=== PATIENT | female | born 1965 | race Caucasian/White ===

== ENCOUNTER 2023-08-28 14:11 | Outpatient (CLI) | payer MEDICAID | END 2023-08-28 14:12 | disposition critical access hospital (66) | LOC: EMS 14:11 | DX: M79.604 Pain in right leg (principal); Z59.00 Homelessness unspecified | CPT/HCPCS: A0425; A0429; A0999 ==

== ENCOUNTER 2023-08-28 14:28 | Emergency (ER) | payer MEDICAID, OTHER ==
[2023-08-28 14:51] VITALS: BP 135/84; O2SAT 94
[2023-08-28] MEDS ORDERED: IBUPROFEN 800 MG TABLET PO STA (15:00)
--- NOTE | 2023-08-28 15:01 | ED Physician Documentation ---
History of Present Illness - Stated complaint Stated Complaint: R LEG PX - Chief complaint Chief Complaint: Ext Problem - History obtained from History obtained from: Patient - History of Present Illness Timing: Today Pain level max: 5 Pain level now: 5 - Additonal information Additional information: Patient is a 58-year-old female who presents to the emergency department complaining of right hip and right knee pain after "walking" last night. No fall. No trip. No trauma. Has not taken anything for pain. She states that she is homeless, but usually stays in [place]. Her regular doctor is in [place]. No swelling. No fevers. No chills. No skin changes. Has not taken anything for pain. She states she does not want anything "stronger". Review of Systems Constitutional: denies: Fever, Chills GI: denies: Vomiting PD PAST MEDICAL HISTORY - Past Medical History Cardiovascular: Hypertension Respiratory: COPD Psych: Depression - Allergies Allergies/Adverse Reactions: Allergies Allergy/AdvReac Type Severity Reaction Status Date / Time No Known Drug Allergies Allergy Verified 08/28/23 14:50 - Social History Does the pt smoke?: Yes Smoking Status: Current every day smoker PD ED PE NORMAL - Vitals Vital signs reviewed: Yes - General General: Alert and oriented X 3, No acute distress - HEENT HEENT: PERRL, Moist mucous membranes - Neck Neck: Supple, no meningeal sign - Cardiac Cardiac: RRR, Strong equal pulses - Respiratory Respiratory: No respiratory distress, Clear bilaterally - Abdomen Abdomen: Soft, Non tender, Non distended - Derm Derm: Warm and dry - Extremities Extremities: No deformity, No tenderness to palpate, Normal ROM s pain, Other (No swelling of the hip or knee. Full range of motion of all joints of the bilateral lower extremities without any pain. No crepitus. No skin changes. Neurovascular intact. No bony tenderness.) - Neuro Neuro: Alert and oriented X 3 - Psych Psych: Normal mood, Normal affect Results - Vitals Vitals: Vital Signs - 24 hr 08/28/23 14:46 Temperature 36.2 C L Heart Rate 71 Respiratory 18 Rate Blood Pressure 135/84 H O2 Saturation 94 Oxygen O2 Source Room air PD Medical Decision Making - ED course Complexity details: considered differential, d/w patient ED course: Patient likely with arthritis of the hip and knee. No falls. No trauma. No indication for emergent x-ray. She has been walking more than usual. I offered to send a prescription for anti-inflammatory medication to the pharmacy for her, she states that she does not want any medication for home. She states that she wants to catch the bus to get back [place] homeless [place]. Full range of motion of all joints of the bilateral lower extremities without pain. Normal gait. Patient counseled regarding signs and symptoms for which I believe and urgent re-evaluation would be necessary. Patient with good understanding of and agreement to plan and is comfortable going home at this time This document was made in part using voice recognition software. While efforts are made to proofread this document, sound alike and grammatical errors may occur. Departure - Departure Disposition: Home, Self Care Clinical Impression: Hip pain Qualifiers: Laterality: right Qualified Code(s): M25.551 - Pain in right hip Knee pain Qualifiers: Chronicity: unspecified Laterality: right Qualified Code(s): M25.561 - Pain in right knee Condition: Good Instructions: ED Degenerative Joint Disease Follow-Up: your,doctor in 1 week [Other] Comments: You can use Motrin or Tylenol as needed for pain at home. Please follow-up with your doctor for further care. There is no evidence of fracture, dislocation or ligamentous injury today. Forms: PCP List
== END 2023-08-28 15:41 | disposition home or self-care (01) ==
LOC: ED 14:28
DX: M25.551 Pain in right hip (principal); M25.561 Pain in right knee; I10 Essential (primary) hypertension
CPT/HCPCS: 99283; A9270

== ENCOUNTER 2023-09-12 16:50 | Outpatient (CLI) | payer MEDICAID | END 2023-09-12 16:51 | disposition critical access hospital (66) | LOC: EMS 16:50 | DX: Z03.89 Encounter for observation for other suspected diseases and conditions ruled out (principal); Z59.02 Unsheltered homelessness | CPT/HCPCS: A0425; A0429 ==

== ENCOUNTER 2023-09-12 17:26 | Emergency (ER) | payer MEDICAID ==
[2023-09-12 17:51] VITALS: BP 143/86; O2SAT 98
--- NOTE | 2023-09-12 18:34 | ED Physician Documentation ---
PD HPI MAJOR TRAUMA - Stated complaint Stated Complaint: HOMELESSNESS - Chief complaint Chief Complaint: Ext Problem - History obtained from History obtained from: Patient - Additional information Additional information: 58-year-old woman here with multiple complaints. The main 1 is that she did not make it to the senior care on time and does not have a place to stay tonight. Also wants refills of her Spiriva and albuterol. Also something for her blood pressure stating she used to be on lisinopril and metoprolol but one of them made him her twitchy and they changed it to something else but she does not know what. She thinks she might have an ulcer because of ongoing pain after eating in the [place]. PD PAST MEDICAL HISTORY - Past Medical History Cardiovascular: Hypertension Respiratory: COPD Psych: Depression - Present Medications Home Medications: Ambulatory Orders Medication Instructions Recorded Confirmed Acetaminophen [Acetaminophen Extra 500 mg PO QID PRN #40 tablet 09/12/23 Strength] Albuterol Sulf [Ventolin Hfa 1 - 2 puffs INH Q4HR PRN #1 each 09/12/23 Inhaler] Escitalopram [Lexapro] 10 mg PO DAILY 09/12/23 Omeprazole 40 mg PO DAILY #30 cap 09/12/23 Tiotropium [place] [Spiriva] 1 puffs INH DAILY 30 Days each 09/12/23 Trazodone HCl 100 mg PO DAILY 09/12/23 amLODIPine [Norvasc] 5 mg PO DAILY #30 tablet 09/12/23 - Allergies Allergies/Adverse Reactions: Allergies Allergy/AdvReac Type Severity Reaction Status Date / Time No Known Drug Allergies Allergy Verified 09/12/23 17:49 - Social History Does the pt smoke?: Yes Smoking Status: Current every day smoker PD ED PE NORMAL - Vitals Vital signs reviewed: Yes - General General: Alert and oriented X 3, No acute distress - HEENT HEENT: PERRL, EOMI - Neck Neck: Supple, no meningeal sign, No bony TTP - Cardiac Cardiac: RRR, No murmur - Respiratory Respiratory: No respiratory distress, Clear bilaterally - Abdomen Abdomen: Non tender - Derm Derm: Normal color, Warm and dry, No rash - Neuro Neuro: Alert and oriented X 3 Eye Opening: Spontaneous Motor: Obeys Commands Verbal: Oriented GCS Score: 15 Results - Vitals Vitals: Vital Signs - 24 hr 09/12/23 17:43 Temperature 36.2 C L Heart Rate 63 Respiratory 17 Rate Blood Pressure 143/86 H O2 Saturation 98 Oxygen O2 Source Room air PD Medical Decision Making - ED course ED course: She has a normal exam and her main complaint is homelessness. We will try to get her into a senior care tonight. She wanted refills of all of her medications and something for stomach acid and also arthritis pain. Departure - Departure Disposition: 01 Home, Self Care Clinical Impression: Homelessness OA (osteoarthritis) Qualifiers: Osteoarthritis location: unspecified site Osteoarthritis type: primary Qualified Code(s): M19.91 - Primary osteoarthritis, unspecified site Hypertension Qualifiers: Hypertension type: unspecified Qualified Code(s): I10 - Essential (primary) hypertension Condition: Good Record reviewed to determine appropriate education?: Yes Instructions: ED Degenerative Joint Disease Prescriptions: Albuterol Sulf [Ventolin Hfa Inhaler] 1 - 2 puffs INH Q4HR PRN #1 each PRN Reason: Shortness Of Air/Wheezing Acetaminophen [Acetaminophen Extra Strength] 500 mg PO QID PRN #40 tablet PRN Reason: arthritis pain amLODIPine [Norvasc] 5 mg PO DAILY #30 tablet Omeprazole 40 mg PO DAILY #30 cap Tiotropium [place] [Spiriva] 1 puffs INH DAILY 30 Days each Comments: Call your doctor to arrange a follow-up appointment, make the next available appointment. In the interim, return anytime if worse or if new symptoms develop.
== END 2023-09-12 19:30 | disposition home or self-care (01) ==
LOC: ED 17:26
DX: Z76.0 Encounter for issue of repeat prescription (principal); M19.91 Primary osteoarthritis, unspecified site; I10 Essential (primary) hypertension; Z59.00 Homelessness unspecified; F17.200 Nicotine dependence, unspecified, uncomplicated
CPT/HCPCS: 99282; 99284